=== PATIENT | female | born 1965 | race Caucasian/White ===

== ENCOUNTER 2020-04-03 20:54 | Emergency (ER) | payer OTHER ==
[~2020-04-03] VITALS: Ht 170.2 cm; Wt 168.3 kg
[2020-04-03] MEDS ORDERED: REXULTI0.25 MG PO (21:52)
[2020-04-03] MEDS ORDERED: OXYBUTYNIN 5 MG5 M2 PO (21:52)
[2020-04-03] MEDS ORDERED: PROTONIX40 M2 PO (21:53)
[2020-04-03] MEDS ORDERED: CYMBALTA60 MG PO (21:53)
[2020-04-03] MEDS ORDERED: KEFLEX500 M1 PO (22:25)
[2020-04-03 22:43] VITALS: BP 138/68
== END 2020-04-03 22:43 | disposition home or self-care (01) ==
LOC: ER 20:54
DX: L02.415 Cutaneous abscess of right lower limb (principal); Z79.899 Other long term (current) drug therapy; Z88.0 Allergy status to penicillin; Z91.040 Latex allergy status; Z88.8 Allergy status to other drugs, medicaments and biological substances